=== PATIENT | male | born 1975 | race Caucasian/White ===

== ENCOUNTER 2017-12-22 07:58 | Emergency (ER) | payer OTHER ==
--- NOTE | 2017-12-22 08:27 | EDM.PDOC ---
ED HPI GENERAL MEDICAL PROBLEM - General Chief Complaint: Abdominal Pain Stated Complaint: ABDOMINAL PAIN Time Seen by Provider: 12/22/17 08:15 Source of Information: Reports: Patient History Limitations: Reports: No Limitations - History of Present Illness INITIAL COMMENTS - FREE TEXT/NARRATIVE: 42-year-old male with lower abdominal pain for the past 48 hours. It's becoming more intense, hurts to straighten his legs, hurts to move or walk and seems to be concentrating somewhat on the left side. He also has some mild discomfort radiating down his left buttock into his posterior left leg. Had a fever last night with some chills. No significant nausea or vomiting, no rashes, joint pains, shortness of breath or chest pain. He has no history of abdominal surgeries, has no regular physician and is on no medications. Onset: Gradual Location: Reports: Abdomen Severity: Moderate Associated Symptoms: Reports: Fever/Chills, Loss of Appetite. Denies: Nausea/ Vomiting, Shortness of Breath abdominal Pain Score (Numeric/FACES): 5 - Related Data Allergies Allergy/AdvReac Type Severity Reaction Status Date / Time No Known Allergies Allergy Verified 12/22/17 08:10 Home Meds: Home Meds NK [No Known Home Meds] 12/22/17 [History] Past Medical History HEENT History: Reports: Impaired Vision Social & Family History - Tobacco Use Smoking Status *Q: Current Every Day Smoker Years of Tobacco use: 20 Packs/Tins Daily: 0.1 - Caffeine Use Caffeine Use: Reports: Soda - Recreational Drug Use Recreational Drug Use: No ED ROS GENERAL - Review of Systems Review Of Systems: See Below Constitutional: Reports: Fever, Chills, Malaise HEENT: Reports: No Symptoms, Other (No acute symptoms, has a chronic left disconjugate gaze) Respiratory: Denies: Shortness of Breath, Cough Cardiovascular: Denies: Chest Pain GI/Abdominal: Denies: Diarrhea : Reports: No Symptoms Skin: Reports: No Symptoms Neurological: Denies: Headache ED EXAM, GI/ABD - Physical Exam Exam: See Below Exam Limited By: No Limitations General Appearance: Alert, No Apparent Distress (Looks uncomfortable) Eyes: Left: Abnormal EOM (Lateral disconjugate gaze) Head: Atraumatic Respiratory/Chest: No Respiratory Distress, Lungs Clear Cardiovascular: Regular Rate, Rhythm GI/Abdominal Exam: Guarding (Pain is focused in the left lower quadrant), Rebound, Tender Neurological: Alert, Oriented Psychiatric: Normal Affect, Normal Mood Skin Exam: Warm, Dry Course - Vital Signs Last Recorded V/S: Last Vital Signs Temp 95.9 F 12/22/17 08:12 Pulse 86 12/22/17 08:12 Resp 20 12/22/17 08:12 BP 158/86 H 12/22/17 08:12 Pulse Ox 97 12/22/17 08:12 - Orders/Labs/Meds Labs: Laboratory Tests 12/22/17 12/22/17 Range/Units 08:35 08:35 WBC 17.1 H (4.5-11.0) K/uL RBC 5.37 (4.30-5.90) M/uL Hgb 15.9 H (12.0-15.0) g/dL Hct 45.3 (40.0-54.0) % MCV 84 (80-98) fL MCH 30 (27-31) pg MCHC 35 (32-36) % Plt Count 301 (150-400) K/uL Neut % (Auto) 75 H (36-66) % Lymph % (Auto) 14 L (24-44) % Stark % (Auto) 10 H (2-6) % Eos % (Auto) 1 L (2-4) % Baso % (Auto) 0 (0-1) % Sodium 134 L (140-148) mmol/L Potassium 3.9 (3.6-5.2) mmol/L Chloride 100 (100-108) mmol/L Carbon Dioxide 23 (21-32) mmol/L Anion Gap 14.9 H (5.0-14.0) mmol/L BUN 11 (7-18) mg/dL Creatinine 0.9 (0.8-1.3) mg/dL Est Cr Clr Drug Dosing 102.39 mL/min Estimated GFR (MDRD) > 60 (>60) Glucose 104 (74-106) mg/dL Calcium 9.0 (8.5-10.1) mg/dL Total Bilirubin 0.8 (0.2-1.0) mg/dL AST 16 (15-37) U/L ALT 31 (12-78) U/L Alkaline Phosphatase 98 (46-116) U/L Total Protein 7.2 (6.4-8.2) g/dL Albumin 3.4 (3.4-5.0) g/dL Globulin 3.8 H (2.3-3.5) g/dL Albumin/Globulin Ratio 0.9 L (1.2-2.2) Meds: Medications Discontinued Medications Generic Name Dose Route Start Last Admin Trade Name Ailyn PRN Reason Stop Dose Admin Sodium Chloride 80 mls @ 3.5 mls/sec 12/22/17 09:15 12/22/17 09:28 Normal Saline IV 12/22/17 09:16 3.5 mls/sec ASDIRECTED ANDREWS Administration Iopamidol 134 ml 12/22/17 09:12 12/22/17 09:28 Isovue-300 (61%) IV 12/23/17 09:13 134 ml . DIRECTED PRN Administration RADIOLOGY EXAM Sodium Chloride 10 ml 12/22/17 09:12 12/22/17 09:28 Saline Flush FLUSH 12/22/17 09:13 10 ml ONETIME PRN Administration per radiology protocol - Re-Assessments/Exams Free Text/Narrative Re-Assessment/Exam: 12/22/17 08:27 CBC and CMP were obtained. Plan is an IV enhanced abdominal and pelvis CT scan to assess whether this is diverticulitis, appendicitis or possibly nephrolithiasis. 12/22/17 10:19 CBC showed a white count of 17,000, CMP was normal. CT scan confirmed a small area of diverticulitis in the proximal sigmoid colon lying on the left psoas muscle. The patient was started on metronidazole 500 mg 3 times a day, Bactrim DS twice a day and was encouraged to take anti-inflammatories and drink lots of fluids. He'll return if worsening or recheck in 3-4 days if not improving satisfactorily. Departure - Departure Time of Disposition: 10:37 Disposition: Home, Self-Care 01 Condition: Good Clinical Impression: Diverticulitis - Discharge Information Instructions: Diverticulitis, [id number] Referrals: PCP,None [Primary Care Provider] - Forms: ED Department Discharge Care Plan Goals: Take the antibiotics as prescribed for at least 7 days or until symptom free. Liquids initially, and increase diet as tolerated. Anti-inflammatories such as ibuprofen or naproxen should help, return if worsening despite treatment.
[2017-12-22] MEDS ORDERED: Sodium Chloride 0.9% 10 ML Syringe FLUSH PRN (09:12)
[2017-12-22] MEDS ORDERED: Iopamidol 612 MG/ML 150 ML Bottle IV PRN (09:12)
[2017-12-22] MEDS ORDERED: Sodium Chloride 0.9% 80 ML IV SCH (09:15)
--- NOTE | 2017-12-22 10:25 | CT ---
Abdomen Pelvis w Cont CLINICAL HISTORY: Left lower quadrant pain COMPARISON: None. TECHNIQUE: Axial tomographic images are obtained from the dome of the diaphragm to the pubic symphysi s with IV contrast enhancement. No oral contrast was used. Prescribed dose FINDINGS: The lung bases are clear. The liver shows no mass or biliary dilatation. The gallbladder avalos s a normal appearance. The spleen has a normal size and shape. The pancreas is free of mass or inflam matory change. The adrenal glands appear normal bilaterally. The kidneys show no mass, stones or hydr onephrosis. The ureters have a normal course and contour. The aorta has a normal contour. There is no suspicious retroperitoneal adenopathy. There is a segment of thickened the bowel in the proximal sigmoid colon. There are inflammatory webster es in the mesenteric fat. Contiguous to this thickened segment is a pericolic calcification. This may be concretions or debris within a diverticula. No free air is identified. The appendix has a normal appearance. The bladder has a normal contour. Th e no inguinal mass or hernia is identified. There is no suspicious lymphadenopathy IMPRESSION: Inflamed segment of proximal sigmoid colon with an adjacent pericolic calcification. This is likely concretions or debris within a sigmoid diverticula and adjacent diverticulitis. Follow-up CT following course of treatment should be considered
== END 2017-12-22 10:37 | disposition home or self-care (01) ==
LOC: JP.ED 07:58
DX: K57.32 Diverticulitis of large intestine without perforation or abscess without bleeding (principal); F17.210 Nicotine dependence, cigarettes, uncomplicated
CPT/HCPCS: 36415; 74177; 80053; 85025; 99284; J7030; J7050

== ENCOUNTER 2024-05-21 08:20 | Day surgery (SDC) | payer BC ==
[2024-05-21] MEDS: Lactated Ringers 1,000 ML IV SCH (08:37)
[2024-05-21] MEDS ORDERED: Midazolam 1 MG/ML 2 ML SDV ONE (09:09)
[2024-05-21] MEDS ORDERED: Propofol 200 MG/20 ML SDV ONE ×2 (09:09→10:08)
[2024-05-21] MEDS ORDERED: fentaNYL 100 MCG/2 ML SDV ONE (09:09)
[2024-05-21] MEDS: ceFAZolin 2 GM in Premix Bag 1 BAG IV ONE (09:55)
[2024-05-21] MEDS: Bupivacaine 0.5% 50 ML MDV ONE (11:01)
[2024-05-21] MEDS: Lidocaine 1% with EPINEPHrine 1:100,000 50 ML MDV ONE (11:02)
== END 2024-05-21 11:35 | disposition home or self-care (01) ==
LOC: JP.SDS 08:20
PROVIDERS: ATTEND Surgery
DX: D17.1 Benign lipomatous neoplasm of skin and subcutaneous tissue of trunk (principal); E78.2 Mixed hyperlipidemia; I25.10 Atherosclerotic heart disease of native coronary artery without angina pectoris; Z95.5 Presence of coronary angioplasty implant and graft; Z87.891 Personal history of nicotine dependence
CPT/HCPCS: 00300; 21931; 88304; J0665; J0690; J2250; J2704; J3010; J7120